=== PATIENT | male | born 1980 | race Caucasian/White ===

== ENCOUNTER 2017-01-07 21:54 | Emergency (ER) | payer MEDICAID ==
[~2017-01-07] VITALS: Ht 167.6 cm; Wt 72.6 kg
[2017-01-07 22:09] VITALS: BP 139/76
== END 2017-01-07 22:22 | disposition home or self-care (01) ==
LOC: ER 21:54
DX: M79.1 Myalgia (principal); M54.5 Low back pain; M54.2 Cervicalgia; V43.52XA Car driver injured in collision with other type car in traffic accident, initial encounter; Y93.89 Activity, other specified; Y92.488 Other paved roadways as the place of occurrence of the external cause; Y99.8 Other external cause status
CPT/HCPCS: 99282; A4606; Z7610

== ENCOUNTER 2020-05-21 23:25 | Emergency (ER) | payer MEDICAID, OTHER ==
[~2020-05-21] VITALS: Ht 170.2 cm; Wt 77.3 kg
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
[2020-05-21] MEDS ORDERED: IBUPROFEN 600 MG TABLET PO ONE (23:37)
[2020-05-21] MEDS ORDERED: HYDROCODONE/APAP 5/325MG 1 EACH TABLET ONE (23:37)
[2020-05-21] MEDS: IBUPROFEN 600 MG TABLET PO ONE (23:40)
[2020-05-21] MEDS: HYDROCODONE/APAP 5/325MG 1 EACH TABLET PO ONE (23:40)
--- NOTE | 2020-05-21 23:44 | NUR ---
Robert fox in ED - 05/21/20 at 2359 by [email or web address] XRAY IN PROGRESS AT THE BEDSIDE.
--- NOTE | 2020-05-21 23:58 | NUR ---
XRAY IN PROGRESS AT THE BEDSIDE.
--- NOTE | 2020-05-22 00:26 | NUR ---
Patient discharged to home in stable condition. Written and verbal after care instructions given. Patient verbalizes understanding of instruction AND RX. PT AMBULATED OUT WITH A STEADY GAIT. VSS. NAD NOTED. PT REC'D A COPY OF THE IMAGING FINDINGS. VSS.
[2020-05-22 00:29] VITALS: BP 137/58
== END 2020-05-22 00:29 | disposition home or self-care (01) ==
LOC: ER 23:32
DX: S16.1XXA Strain of muscle, fascia and tendon at neck level, initial encounter (principal); M54.5 Low back pain; V49.69XA Unspecified car occupant injured in collision with other motor vehicles in traffic accident, initial encounter; Y93.89 Activity, other specified; Y92.413 State road as the place of occurrence of the external cause; Y99.8 Other external cause status
CPT/HCPCS: 72110-TC

== ENCOUNTER 2022-06-02 08:29 | Emergency (ER) | payer OTHER ==
[~2022-06-02] VITALS: Ht 167.6 cm; Wt 79.4 kg
[2022-06-02 09:00] VITALS: BP 134/90
--- NOTE | 2022-06-02 09:40 | NUR ---
[facility] CALLED FOR GUIDELINS ON PUI FOR MONKEY POX
[2022-06-02] MEDS ORDERED: LIDO30CR TP (10:35)
[2022-06-02] MEDS ORDERED: HYDR-3972 PO (10:35)
--- NOTE | 2022-06-02 10:40 | NUR ---
CALL BACK FROM [facility] WITH RECOMMENDATIONS,DR ALEXANDER AWARE
== END 2022-06-02 10:53 | disposition home or self-care (01) ==
LOC: ER 08:32
DX: B08.8 Other specified viral infections characterized by skin and mucous membrane lesions (principal)